=== PATIENT | male | born 1995 | race Caucasian/White ===

== ENCOUNTER 2021-07-16 21:33 | Emergency (ER) | payer OTHER ==
[2021-07-16 22:56] LABS: BILIRUBIN 1+ mg/dL (NEGATIVE); BLOOD NEGATIVE Ery/uL (NEGATIVE); CLARITY CLEAR (CLEAR); COLOR YELLOW (YELLOW); GLUCOSE (U) NORMAL (NORMAL); LEUKOCYTES NEGATIVE Leu/uL (NEGATIVE); NITRITE NEGATIVE (NEGATIVE); PROTEIN NEGATIVE (NEGATIVE); SPECIFIC GRAVITY >=1.030 (1.001-1.030); UROBILINOGEN 0.2 mg/dL (0.2-1.0)
[2021-07-16 23:07] LABS: BASOPHIL 0.5 % (0-2); EOSINOPHIL 1.2 % (0-5); HCT 45.6 % (42.0-52.0); HGB 15.6 g/dl (13.2-18.0); LYMPHOCYTE 23.7 % (15-48); MCH 31.3 pg (25.0-31.0); MCHC 34.2 g/dL (32.0-36.0); MCV 91.6 fL (78.0-100.0); MONOCYTE 5.6 % (0-12); MPV 9.9 fL (6.0-9.5); NEUTROPHIL 68.8 % (41-80); NRBC 0; PLT 207 K/uL (150-400); RBC 4.98 M/uL (4.70-6.00); RDW 11.3 % (11.5-14.0); WBC 9.6 K/uL (4.0-10.5)
[2021-07-16 23:33] LABS: ALBUMIN 4.4 g/dL (3.4-5.0); BILIRUBIN - TOTAL 0.8 mg/dL (0.2-1.0); BUN/CREAT RATIO (CALC) 13.8 RATIO; CREATININE 0.94 mg/dL (0.67-1.17); GLOBULIN (CALCULATION) 3.4 g/dL; POTASSIUM 3.7 mmol/L (3.5-5.1); TOTAL PROTEIN 7.8 g/dL (6.4-8.2)
[2021-07-17] MEDS ORDERED: TESSALON PERLE100 M1 PO (01:06)
[2021-07-17] MEDS ORDERED: ZOFRAN4 M1 PO (01:06)
[2021-07-17] MEDS ORDERED: BENTYL10 MG PO (01:10)
== END 2021-07-17 01:26 | disposition home or self-care (01) ==
LOC: FER 21:33
PROVIDERS: Emergency Medicine
DX: K82.8 Other specified diseases of gallbladder (principal); F17.210 Nicotine dependence, cigarettes, uncomplicated
CPT/HCPCS: 36415; 80053; 81003; 82728; 83690; 83735; 84145; 85025; J1885; J2405; J7030